=== PATIENT | male | born 1950 | race Caucasian/White ===

== ENCOUNTER 2019-03-09 06:33 | Day surgery (SDC) | payer MEDICARE, MEDICAID ==
[2019-03-09] MEDS ORDERED: Lidocaine 1%/Sod Bicarbonate in NS 8.4% 1 ML Syringe IDERM PRN (07:13)
[2019-03-09] MEDS ORDERED: Lactated Ringers 1,000 ML IV SCH (07:13)
[2019-03-09] MEDS ORDERED: Sodium Chloride 0.9% 10 ML Syringe FLUSH PRN (07:13)
[2019-03-09] MEDS ORDERED: Bupivacaine 0.25% 30 ML SDV ONE (07:39)
--- NOTE | 2019-03-09 08:01 | PCM.PREANE ---
Preanesthetic Assessment - Anesthesia/Transfusion/Family Hx Anesthesia History: Prior Anesthesia Without Reaction Family History of Anesthesia Reaction: No Transfusion History: Prior Transfusion Without Reaction - Review of Systems General: No Symptoms Pulmonary: No Symptoms Cardiovascular: No Symptoms Gastrointestinal: No Symptoms Neurological: No Symptoms Other: Reports: None - Physical Assessment NPO Status Date: 03/08/19 NPO Status Time: 18:00 Pulse: 64 O2 Sat by Pulse Oximetry: 96 Respiratory Rate: 16 Blood Pressure: 155/77 Temperature: 36.5 C Vital Signs: Last Vital Signs Temp 36.5 C 03/09/19 07:10 Pulse 64 03/09/19 07:10 Resp 16 03/09/19 07:10 BP 155/77 H 03/09/19 07:10 Pulse Ox 96 03/09/19 07:10 Height: 1.52 m Weight: 55.792 kg ASA Class: 2 Mental Status: Alert & Oriented x3 Airway Class: Mallampati = 1 Dentition: Reports: Caries Thyro-Mental Finger Breadths: 3 Mouth Opening Finger Breadths: 3 ROM/Head Extension: Full Lungs: Clear to Auscultation, Normal Respiratory Effort Cardiovascular: Regular Rate, Regular Rhythm - Lab Values: Laboratory Last Values MRSA (PCR) Negative 03/01/19 09:00 - Imaging/EKG Impressions: SR rate 64 - Allergies Allergies/Adverse Reactions: Allergies Allergy/AdvReac Type Severity Reaction Status Date / Time No Known Allergies Allergy Verified 03/08/19 15:03 - Anesthesia Plan Pre-Op Medication Ordered: None - Acknowledgements Anesthesia Type Planned: General Anesthesia Pt an Appropriate Candidate for the Planned Anesthesia: Yes Alternatives and Risks of Anesthesia Discussed w Pt/Guardian: Yes Pt/Guardian Understands and Agrees with Anesthesia Plan: Yes PreAnesthesia Questionnaire HEENT History: Reports: None Cardiovascular History: Reports: Hypertension Respiratory History: Reports: None Gastrointestinal History: Reports: None Genitourinary History: Reports: None Other Musculoskeletal History: Osteonecrosis right tibia, chronic right leg pain , post trauma left leg Neurological History: Reports: Headaches, Chronic Other Neuro History: Chronic headaches Psychiatric History: Reports: None Endocrine/Metabolic History: Reports: None Hematologic History: Reports: None Immunologic History: Reports: None Oncologic (Cancer) History: Reports: None Other Dermatologic History: Actinic keratosis - Infectious Disease History Infectious Disease History: Reports: Mumps - Past Surgical History Head Surgeries/Procedures: Reports: None HEENT Surgical History: Reports: None Cardiovascular Surgical History: Reports: None Respiratory Surgical History: Reports: None GI Surgical History: Reports: Colonoscopy Male Surgical History: Reports: None Endocrine Surgical History: Reports: None Neurological Surgical History: Reports: None Musculoskeletal Surgical History: Reports: None Dermatological Surgical History: Reports: None - SUBSTANCE USE Tobacco Use Within Last Twelve Months: Snuff/Dip Second Hand Smoke Exposure: No Days Per Week of Alcohol Use: 1 Number of Drinks Per Day: 1 Total Drinks Per Week: 1 Recreational Drug Use History: No - HOME MEDS Home Medications: Home Meds Chlorthalidone 12.5 mg PO DAILY 05/24/14 [History] Enalapril [Vasotec] 10 mg PO DAILY 05/24/14 [History] Aspirin 325 mg PO BID #84 tab 03/09/19 [Rx] Hydrocodone/Acetaminophen [Hydrocodon-Acetaminophen 5-325] 1 - 2 tab PO Q6H PRN #40 tablet 03/09/19 [Rx] - CURRENT (IN HOUSE) MEDS Current Meds: Current Medications Lactated Ringer's (Ringers, Lactated) 1,000 mls @ 125 mls/hr IV ASDIRECTED TAYLER Stop: 03/09/19 23:00 Last Admin: 03/09/19 07:15 Dose: 125 mls/hr Lidocaine/Sodium Bicarbonate (Buffered Lidocaine 1% In Ns 8.4%) 0.25 ml IDERM ONETIME PRN PRN Reason: Prior to IV Start Stop: 03/09/19 18:00 Last Admin: 03/09/19 07:15 Dose: 0.25 ml Sodium Chloride (Saline Flush) 10 ml FLUSH ASDIRECTED PRN PRN Reason: Keep Vein Open Stop: 03/09/19 18:00 Discontinued Medications Bupivacaine HCl (Marcaine 0.25%) Confirm Administered Dose 30 ml .ROUTE .STK- MED ONE Stop: 03/09/19 07:40
[2019-03-09] MEDS ORDERED: Rocuronium 50 MG/5 ML Vial ONE (08:10)
[2019-03-09] MEDS ORDERED: Ondansetron 4 MG/2 ML SDV ONE (08:10)
[2019-03-09] MEDS ORDERED: Lidocaine 1% 4 ML ONE (08:11)
[2019-03-09] MEDS ORDERED: Propofol 200 MG/20 ML SDV ONE (08:11)
[2019-03-09] MEDS ORDERED: fentaNYL 250 MCG/5 ML SDV ONE (08:11)
[2019-03-09] MEDS ORDERED: ceFAZolin 1 GM Vial ONE (08:11)
[2019-03-09] MEDS ORDERED: HYDROmorphone 0.5 MG/0.5 ML Syringe ONE ×2 (08:59→09:00)
[2019-03-09] MEDS ORDERED: Lactated Ringers 1,000 ML ONE (09:01)
[2019-03-09] MEDS ORDERED: fentaNYL 100 MCG/2 ML SDV ONE ×2 (09:36→10:01)
[2019-03-09] MEDS ORDERED: Ketorolac 30 MG/ML SDV ONE (10:02)
[2019-03-09] MEDS ORDERED: fentaNYL 100 MCG/2 ML SDV IVPUSH PRN (10:15)
[2019-03-09] MEDS ORDERED: HYDROmorphone 0.5 MG/0.5 ML Syringe IVPUSH PRN (10:15)
--- NOTE | 2019-03-09 10:17 | PCM.POSTAN ---
POST ANESTHESIA ASSESSMENT - MENTAL STATUS Mental Status: Alert, Oriented - VITAL SIGNS Pulse Rate: 83 SaO2: 95 Resp Rate: 14 Blood Pressure: 125/60 Temperature: 36.6 C - RESPIRATORY Respiratory Status: Respiratory Rate WNL, Airway Patent, O2 Saturation Stable, Supplemental Oxygen - CARDIOVASCULAR CV Status: Pulse Rate WNL, Blood Pressure Stable - GASTROINTESTINAL GI Status: No Symptoms - PAIN Pain Score: 2 - POST OP HYDRATION Hydration Status: Adequate & Stable - OBSERVATIONS Free Text/Narrative:: no anesthesia complications noted
--- NOTE | 2019-03-09 10:33 | CR ---
Right tibia: Eight fluoroscopic spot views were obtained of the right tibia and fibula utilizing C-arm device. Findings: Partially visualized knee prosthesis is seen. Lucent defects are seen from previous screw placements. Study shows placement of new plate and screws. Fluoroscopy time is given as 27.9 seconds. Impression: 1. Procedural study as noted above. Diagnostic code #2
[2019-03-09] MEDS ORDERED: Acetaminophen/HYDROcodone 325-5 MG Tab PO PRN (10:45)
[2019-03-09] MEDS ORDERED: fentaNYL 100 MCG/2 ML SDV IVPUSH ONE (11:59)
[2019-03-09] MEDS ORDERED: HYDROmorphone 0.5 MG/0.5 ML Syringe IVPUSH ONE (12:00)
[2019-03-09 13:17] VITALS: BP 111/61
--- NOTE | 2019-03-10 11:07 | PCM.OPNOTE ---
- General Post-Op/Procedure Note Date of Surgery/Procedure: 03/09/19 Operative Procedure(s): excision and curretage of osteonecrosis of right tibial shaft with operative plate fixation Pre Op Diagnosis: osteonecrosis of right midshaft tibia Post-Op Diagnosis: Same Anesthesia Technique: General LMA, Local Primary Surgeon: Apolinar Lancaster Anesthesia Provider: Jesus Lea Grading Clerk: Maki Murphy EBL in mLs: 110 Complications: None Condition: Good
--- NOTE | 2019-03-10 14:13 | OR ---
DATE OF OPERATION: 03/09/2019 SURGEON: Apolinar Lancaster MD OPERATION PERFORMED: Excision and curettage of osteonecrosis of right tibial shaft with operative plate fixation. PREOPERATIVE DIAGNOSIS: Osteonecrosis of right midshaft tibia. POSTOPERATIVE DIAGNOSIS: Osteonecrosis of right midshaft tibia. ANESTHESIA: General LMA with local. ANESTHESIA PROVIDER: Jesus Lea CRNA. SUPERVISOR ASSEMBLY DEPARTMENT: Maki Murphy PA-C. ESTIMATED BLOOD LOSS: 110 mL. COMPLICATIONS: None. CONDITION: Stable. DESCRIPTION OF PROCEDURE: The patient was identified in the preoperative holding area where proper site was marked and identified by the surgeon. The patient was taken back to the operating theater where after adequate anesthesia, the patient's right lower extremity was sterilely prepped and draped in the usual sterile fashion. OR time-out was performed. The patient received 2 g IV Ancef. At this time, right lower extremity was exsanguinated and a nonsterile tourniquet was insufflated to 250 mmHg. At this time, an incision was made just to the lateral side of the midshaft tibia over the crest of the tibia. At this time, we resected the muscle belly off the area of osteonecrosis which was identified on C-arm fluoroscopy on both AP and lateral views. Once we were able to get to that area, it showed that it had indentation in that region as well as signs of bone with color change. Using C-arm fluoroscopy for the exact spot, I was able to do drill holes around the area making sure to keep the anterior pretibial cortex intact. I used then osteotomes to resect that area of bone that was osteonecrotic. The bone was noted to be significantly weak around it and another piece of bone came off with the osteotome bone that was osteonecrotic. There were noted to be large lobules of what appeared to be osteonecrosed bone or fat behind it that we sent for pathology specimen. We did take 3 sets of anaerobic and aerobic cultures in the intramedullary canal making sure there were no signs of osteomyelitis. At this time, the entire inside was curetted to get a good bony bleeding bed. Adequate saline was then irrigated through the tibia. At this time, a 10-hole 4-hole Burkburnett locking compression plate was then placed and under C-arm fluoroscopy into the proper position. I was able to obtain 8 cortices both proximally and distally to the curetted bone region with both locking and nonlocking screws. This was found to have good adherence to the bone. It was found to be sufficiently distal to the very distal tip of the stem from the previous total knee arthroplasty, so it was in good positioning and I was able to get bicortical purchase for all 8 screws. At this time, I did place Burkburnett allograft in the bony defect. This was compacted and was able to fill the medullary canal as well as behind the plate, but it was sufficient packing so that there was no loose space noted behind the area. At this time, the soft tissues were irrigated making sure to keep the BIO4 intact behind the plate for the graft. A 0 Vicryl was then used for closure of the muscle fascia over the top of the plate, but it was loosely tightened. A 2-0 Vicryl was used subcutaneously. Saxton were used for the skin. The patient had a sterile soft dressing applied and was sent to PACU in stable condition. JASMIN /[id number]
== END 2019-03-09 13:14 | disposition home or self-care (01) ==
LOC: JD.SDS 06:33
PROVIDERS: ATTEND Orthopaedic Surgery
DX: M87.861 Other osteonecrosis, right tibia (principal); I10 Essential (primary) hypertension; M79.661 Pain in right lower leg; L57.0 Actinic keratosis; R51 Headache; G89.29 Other chronic pain; Z79.891 Long term (current) use of opiate analgesic; Z79.899 Other long term (current) drug therapy
CPT/HCPCS: 01392; 76000; 76000-26; 87075; 87205; 87641; 88304; 88311; A9270-GY; C1713; J0690; J1170; J1885; J2001; J2405; J2704; J3010; J3490; J7120

== ENCOUNTER 2021-01-02 06:18 | Day surgery (SDC) | payer MEDICARE, MEDICAID ==
[~2021-01-02 06:18] MED LIST: Lactated Ringers 1,000 ML IV SCH; Lidocaine 1%/Sod Bicarbonate in NS 8.4% 1 ML Syringe IDERM PRN; Sodium Chloride 0.9% 10 ML Syringe FLUSH PRN
[2021-01-02] MEDS ORDERED: Lidocaine 1% 30 ML SDV ONE (07:07)
[2021-01-02] MEDS ORDERED: Triamcinolone Acetonide 40 MG/ML 1 ML SDV ONE (07:07)
[2021-01-02] MEDS ORDERED: Propofol 200 MG/20 ML SDV ONE ×2 (07:11→07:40)
[2021-01-02] MEDS ORDERED: Midazolam 1 MG/ML 2 ML SDV ONE (07:12)
[2021-01-02] MEDS ORDERED: fentaNYL 100 MCG/2 ML SDV ONE (07:12)
[2021-01-02] MEDS ORDERED: ceFAZolin 1 GM Vial ONE (07:12)
[2021-01-02] MEDS: Bupivacaine 0.25% 10 ML SDV ONE ×2 (07:49→07:57)
--- NOTE | 2021-01-02 08:13 | PCM.PREANE ---
Preanesthetic Assessment - Procedure Proposed Procedure: carpal tunnel release - Anesthesia/Transfusion/Family Hx Anesthesia History: Prior Anesthesia Without Reaction Family History of Anesthesia Reaction: No Transfusion History: Prior Transfusion Without Reaction - Review of Systems General: No Symptoms Pulmonary: No Symptoms Cardiovascular: No Symptoms Gastrointestinal: No Symptoms Neurological: Numbness (hands) Other: Reports: None - Physical Assessment NPO Status Date: 01/01/21 NPO Status Time: 00:00 Vital Signs: Last Vital Signs Temp 36.7 C 01/02/21 06:15 Pulse 74 01/02/21 06:15 Resp 16 01/02/21 06:15 BP 131/66 01/02/21 06:15 Pulse Ox 95 01/02/21 06:15 Height: 1.52 m Weight: 58.513 kg ASA Class: 2 Mental Status: Alert & Oriented x3 Airway Class: Mallampati = 1 Dentition: Reports: Normal Dentition Thyro-Mental Finger Breadths: 3 Mouth Opening Finger Breadths: 3 ROM/Head Extension: Full Lungs: Clear to Auscultation, Normal Respiratory Effort Cardiovascular: Regular Rate, Regular Rhythm - Lab Values: Laboratory Last Values MRSA (PCR) Negative 12/27/20 08:57 - Allergies Allergies/Adverse Reactions: Allergies Allergy/AdvReac Type Severity Reaction Status Date / Time No Known Allergies Allergy Verified 03/09/19 11:02 - Anesthesia Plan Pre-Op Medication Ordered: None - Acknowledgements Anesthesia Type Planned: MAC Pt an Appropriate Candidate for the Planned Anesthesia: Yes Alternatives and Risks of Anesthesia Discussed w Pt/Guardian: Yes Pt/Guardian Understands and Agrees with Anesthesia Plan: Yes PreAnesthesia Questionnaire HEENT History: Reports: Impaired Vision, Other (See Below) Other HEENT History: wears glasses, has hearing aids bilaterally, nasal cautery Cardiovascular History: Reports: Hypertension Respiratory History: Reports: None Gastrointestinal History: Reports: None Genitourinary History: Reports: None WAREHOUSE ASSEMBLY WORKER History: Reports: None Other Musculoskeletal History: Osteonecrosis right tibia, chronic right leg pain, post trauma left leg Neurological History: Reports: Headaches, Chronic Other Neuro History: Chronic headaches Psychiatric History: Reports: None Endocrine/Metabolic History: Reports: None Hematologic History: Reports: None Immunologic History: Reports: None Oncologic (Cancer) History: Reports: None Other Dermatologic History: Actinic keratosis - Infectious Disease History Infectious Disease History: Reports: None - Past Surgical History Head Surgeries/Procedures: Reports: None HEENT Surgical History: Reports: None, Tonsillectomy Cardiovascular Surgical History: Reports: None Respiratory Surgical History: Reports: None GI Surgical History: Reports: Colonoscopy Female Surgical History: Reports: None Male Surgical History: Reports: None Endocrine Surgical History: Reports: None Neurological Surgical History: Reports: None Musculoskeletal Surgical History: Reports: None Other Musculoskeletal Surgeries/Procedures:: multiple left leg surgeries, ORIF right ankle Oncologic Surgical History: Reports: None Dermatological Surgical History: Reports: None - SUBSTANCE USE Tobacco Use Status *Q: Current Every Day Tobacco User Tobacco Use Within Last Twelve Months: Snuff/Dip Recreational Drug Use History: No - HOME MEDS Home Medications: Home Meds Chlorthalidone 12.5 mg PO DAILY 05/24/14 [History] Enalapril [Vasotec] 10 mg PO DAILY 05/24/14 [History] Hydrocodone/Acetaminophen [Hydrocodone-Acetamin 5-325 mg] 1 - 2 tab PO Q6H PRN #10 tablet 01/01/21 [Rx] - CURRENT (IN HOUSE) MEDS Current Meds: Current Medications Lactated Ringer's (Ringers, Lactated) 1,000 mls @ 125 mls/hr IV ASDIRECTED TALYER Stop: 01/02/21 23:00 Last Admin: 01/02/21 06:35 Dose: 125 mls/hr Documented by: Lidocaine/Sodium Bicarbonate (Buffered Lidocaine 1% In Ns 8.4%) 0.25 ml IDERM ONETIME PRN PRN Reason: Prior to IV Start Stop: 01/02/21 18:00 Last Admin: 01/02/21 06:34 Dose: 0.25 ml Documented by: Sodium Chloride (Saline Flush) 10 ml FLUSH ASDIRECTED PRN PRN Reason: Keep Vein Open Stop: 01/02/21 18:00 Discontinued Medications Bupivacaine HCl (Sensorcaine-Mpf 0.25%) Confirm Administered Dose 20 ml .ROUTE .STK-MED ONE Stop: 01/02/21 07:08 Cefazolin Sodium (Ancef) Confirm Administered Dose 2 gm .ROUTE .STK-MED ONE Stop: 01/02/21 07:13 Fentanyl (Sublimaze) Confirm Administered Dose 100 mcg .ROUTE .STK-MED ONE Stop: 03/04/21 07:13 Lidocaine HCl (Xylocaine-Mpf 1%) Confirm Administered Dose 30 ml .ROUTE .STK-MED ONE Stop: 01/02/21 07:08 Midazolam HCl (Versed 1 Mg/Ml) Confirm Administered Dose 2 mg .ROUTE .STK-MED ONE Stop: 01/02/21 07:13 Propofol (Diprivan 20 Ml) Confirm Administered Dose 200 mg .ROUTE .STK-MED ONE Stop: 01/02/21 07:12 Propofol (Diprivan 20 Ml) Confirm Administered Dose 200 mg .ROUTE .STK-MED ONE Stop: 01/02/21 07:41 Triamcinolone Acetonide (Kenalog-40) Confirm Administered Dose 40 mg .ROUTE .STK-MED ONE Stop: 01/02/21 07:08
--- NOTE | 2021-01-02 08:13 | PCM48HPAN ---
Post Anesthesia Note - EVALUATION WITHIN 48HRS OF ANESTHETIC Vital Signs in Normal Range: Yes Patient Participated in Evaluation: Yes Respiratory Function Stable: Yes Airway Patent: Yes Cardiovascular Function Stable: Yes Hydration Status Stable: Yes Pain Control Satisfactory: Yes Nausea and Vomiting Control Satisfactory: Yes Mental Status Recovered: Yes Vital Signs: Last Vital Signs Temp 36.7 C 01/02/21 06:15 Pulse 74 01/02/21 06:15 Resp 16 01/02/21 06:15 BP 131/66 01/02/21 06:15 Pulse Ox 95 01/02/21 06:15
--- NOTE | 2021-01-02 08:19 | PCM.OPNOTE ---
- General Post-Op/Procedure Note Date of Surgery/Procedure: 01/02/21 Operative Procedure(s): right carpal tunnel release with left carpal tunnel injection Pre Op Diagnosis: bilateral median nerve compression neuropathy Post-Op Diagnosis: Same Anesthesia Technique: Local, MAC Primary Surgeon: Apolinar Lancaster Anesthesia Provider: Jesus Lea Legal Services Manager: Maki Murphy EBL in mLs: 5 Complications: None Condition: Good
[2021-01-02 09:07] VITALS: BP 107/64; PULSE 61
--- NOTE | 2021-01-06 14:21 | OR ---
DATE OF OPERATION: 01/02/2021 SURGEON: Apolinar Lancaster MD OPERATION PERFORMED: Right carpal tunnel release with left carpal tunnel injection. PREOPERATIVE DIAGNOSIS: Bilateral median nerve compression neuropathy. POSTOPERATIVE DIAGNOSIS: Bilateral median nerve compression neuropathy. ANESTHESIA: Local MAC. ANESTHESIA PROVIDER: Jesus Lea CRNA CABLE INSTALLER: Maki Murphy PA-C ESTIMATED BLOOD LOSS: Less than 5 mL. COMPLICATIONS: None. CONDITION: Stable. DESCRIPTION OF PROCEDURE: The patient was identified in the preop holding area. Proper site was marked and identified by the surgeon. The patient was taken back to the operating theater where after adequate anesthesia, the patient's right upper extremity was sterilely prepped and draped in the usual sterile fashion. OR time-out was performed. The patient did not receive antibiotics and it is not indicated for soft tissue hand procedure. At this time, the right upper extremity was exsanguinated and an Esmarch was used as a tourniquet on the forearm. At this time, using 1% lidocaine without epinephrine and 0.25% Marcaine without epinephrine, the palmar cutaneous branch of the median nerve was anesthetized and then the incisional site was anesthetized using Dillon cardinal line and ulnar border of the fourth digit as reference. Once this had set up, an incision was made. Blunt dissection was taken down to the palmar cutaneous fascia. Palmar cutaneous fascia was incised with a [place] blade. At this time, the transverse carpal ligament was identified. A small rent was made in the transverse carpal ligament with a [place] blade under direct visualization. Resection of the transverse carpal ligament was done distally using tenotomy scissors making sure to stop short of the palmar arch. At this time, attention was turned proximally after it was found to be adequately released. Using the tenotomy scissors keeping the tips ulnar to protect the palmar cutaneous branch of the median nerve, the superficial forearm fascia as well as the transverse carpal ligament were resected proximally. It was found to be adequate release both proximally and distally. At this time, adequate saline was irrigated through the wound. 4-0 nylon sutures were used closure of the skin. The patient was placed in a sterile soft dressing and sent to PACU in stable condition. After this was completed, under sterile technique, 1 mL of 40 mg Kenalog and 2 mL of 0.25% Marcaine were injected to the left carpal tunnel. MMODAL /[id number]
== END 2021-01-02 09:10 | disposition home or self-care (01) ==
LOC: JD.SDS 06:18
PROVIDERS: ATTEND Orthopaedic Surgery
DX: G56.13 Other lesions of median nerve, bilateral upper limbs (principal); G56.03 Carpal tunnel syndrome, bilateral upper limbs; I10 Essential (primary) hypertension; G89.29 Other chronic pain; R51.9 Headache, unspecified; F17.290 Nicotine dependence, other tobacco product, uncomplicated; Z98.890 Other specified postprocedural states; Z79.899 Other long term (current) drug therapy
CPT/HCPCS: 20605; 64721; 87641; J0690; J2250; J2704; J3010; J3301; J3490; J7120; 01810

== ENCOUNTER 2021-10-16 07:45 | Emergency (ER) | payer MEDICARE, MEDICAID ==
[2021-10-16 08:09] VITALS: BP 111/64; PULSE 112
--- NOTE | 2021-10-16 09:17 | CR ---
Chest: Frontal view of the chest was obtained. Comparison: No prior chest imaging is available. Patchy peripheral areas of increased density are seen on both sides of the chest. Prior cervical spine surgery is noted. Heart size and mediastinum are within normal limits. Prior left shoulder surgery is seen. Impression: 1. Findings are felt compatible with mild COVID pneumonia. 2. Other findings which are believed to be chronic as noted above. Diagnostic code #3
--- NOTE | 2021-10-16 09:46 | EDM.PDOC ---
ED HPI GENERAL MEDICAL PROBLEM - General Chief Complaint: Respiratory Problem Stated Complaint: flu/covid Time Seen by Provider: 10/16/21 08:22 Source of Information: Reports: Patient History Limitations: Reports: No Limitations, Other (ED vital signs reveal a pulse of 112, respiratory rate of 22, blood pressure 111/64, pulse ox 87% on room air.) - History of Present Illness INITIAL COMMENTS - FREE TEXT/NARRATIVE: 71-year-old male presents to the emergency department today with complaints of flulike symptoms for approximately the past 2 weeks. He states that when he developed initial symptoms he thought that he was just getting the flu. He had fever, chills and body aches. He states it has progressed to feeling short of breath, having fatigue and a decreased appetite. He denies any nausea, vomiting or diarrhea. States he is otherwise fairly healthy. He states his primary care provider was Dr. Boone however he has since retired. He states he has not seen a provider since. He states he does take a pill for his heart daily however he is unsure of the name of this medication. He denies history of smoking. He did not have his Covid vaccines. - Related Data Allergies Allergy/AdvReac Type Severity Reaction Status Date / Time No Known Allergies Allergy Verified 10/16/21 08:09 Home Meds: Home Meds Chlorthalidone 12.5 mg PO DAILY 05/24/14 [History] Enalapril [Vasotec] 10 mg PO DAILY 05/24/14 [History] Ondansetron [Zofran ODT] 4 mg PO Q6H PRN #20 tab.dis 10/16/21 [Rx] dexAMETHasone [Dexamethasone] 6 mg PO DAILY #15 tablet 10/16/21 [Rx] Past Medical History HEENT History: Reports: Impaired Vision, Other (See Below) Other HEENT History: wears glasses, has hearing aids bilaterally, nasal cautery Cardiovascular History: Reports: Hypertension Respiratory History: Reports: None Gastrointestinal History: Reports: None Genitourinary History: Reports: None [employer] History: Reports: None Other Musculoskeletal History: Osteonecrosis right tibia, chronic right leg pain, post trauma left leg Neurological History: Reports: Headaches, Chronic Other Neuro History: Chronic headaches Psychiatric History: Reports: None Endocrine/Metabolic History: Reports: None Hematologic History: Reports: None Immunologic History: Reports: None Oncologic (Cancer) History: Reports: None Other Dermatologic History: Actinic keratosis - Infectious Disease History Infectious Disease History: Reports: None - Past Surgical History Head Surgeries/Procedures: Reports: None HEENT Surgical History: Reports: None, Tonsillectomy Cardiovascular Surgical History: Reports: None Respiratory Surgical History: Reports: None GI Surgical History: Reports: Colonoscopy Male Surgical History: Reports: None Endocrine Surgical History: Reports: None Neurological Surgical History: Reports: None Musculoskeletal Surgical History: Reports: None Other Musculoskeletal Surgeries/Procedures:: multiple left leg surgeries, ORIF right ankle Oncologic Surgical History: Reports: None Dermatological Surgical History: Reports: None Social & Family History - Tobacco Use Tobacco Use Status *Q: Never Tobacco User Second Hand Smoke Exposure: No - Caffeine Use Caffeine Use: Reports: None - Recreational Drug Use Recreational Drug Use: No ED ROS GENERAL - Review of Systems Review Of Systems: Comprehensive ROS is negative, except as noted in HPI. ED EXAM, GENERAL - Physical Exam Exam: See Below Exam Limited By: No Limitations General Appearance: Alert, WD/WN, No Apparent Distress Ears: Normal External Exam. No: Hearing Grossly Normal (Hearing aids noted bilaterally) Nose: Normal Inspection Throat/Mouth: Normal Inspection, Normal Lips, Normal Voice, No Airway Compromise Head: Atraumatic, Normocephalic Neck: Normal Inspection, Supple Respiratory/Chest: No Respiratory Distress, No Accessory Muscle Use, Chest Non- Tender, Crackles (Crackles noted to the bilateral bases) Cardiovascular: Normal Peripheral Pulses, Regular Rate, Rhythm, No Edema, No Murmur Peripheral Pulses: 2+: Radial (L), Radial (R) GI/Abdominal: Normal Bowel Sounds, Soft, Non-Tender, No Distention (Male) Exam: Deferred Rectal (Males) Exam: Deferred Back Exam: Normal Inspection Extremities: Normal Inspection Neurological: Alert, Oriented, Normal Cognition Psychiatric: Normal Affect, Normal Mood Skin Exam: Warm, Dry, Intact, Normal Color, No Rash Lymphatic: No Adenopathy #1 Interpretation EKG Date: 10/16/21 Time: 08:52 Rhythm: NSR Rate (Beats/Min): 79 [place]: Normal P-Wave: Present QRS: Normal ST-T: Normal QT: Normal Comparison: NA - No Prior EKG EKG Interpretation Comments: Per Dr. Pereira interpretation: Sinus rhythm at 79 bpm; low voltage, extremity leads, otherwise normal QRS Course - Vital Signs Text/Narrative:: Patient's O2 saturations at the time of my exam are 91 to 92%. He is otherwise hemodynamically stable. Lung sounds do reveal fine crackles noted to the bilateral lower lobes. Remainder exam is otherwise unremarkable. Suspect that this patient may have developed Covid as does fit clinically. Will obtain an EKG, portable chest x-ray, lab studies to include a CBC, CMP, magnesium, C- reactive protein, D-dimer and troponin levels. Last Recorded V/S: Last Vital Signs Temp 97.8 F 10/16/21 08:00 Pulse 112 H 10/16/21 08:00 Resp 22 H 10/16/21 08:00 BP 111/64 10/16/21 08:00 Pulse Ox 87 L 10/16/21 08:00 - Orders/Labs/Meds Orders: Active Orders 24 hr Category Date Time Status Saline Lock Insert [OM.PC] Stat Oth 10/16/21 08:34 Ordered Labs: Laboratory Tests 10/16/21 10/16/21 10/16/21 Range/Units 08:03 09:02 09:02 WBC 5.34 (4.23-9.07) K/mm3 RBC 4.19 L (4.63-6.08) M/mm3 Hgb 13.5 L D (13.7-17.5) gm/dl Hct 40.0 L (40.1-51.0) % MCV 95.5 H (79.0-92.2) fl MCH 32.2 (25.7-32.2) pg MCHC 33.8 (32.2-35.5) g/dl RDW Std Deviation 44.5 H (35.1-43.9) fL Plt Count 282 (163-337) K/mm3 MPV 9.7 (9.4-12.3) fl Neut % (Auto) 88.6 H (34.0-67.9) % Lymph % (Auto) 5.2 L (21.8-53.1) % [place] % (Auto) 5.4 (5.3-12.2) % Eos % (Auto) 0.4 L (0.8-7.0) Baso % (Auto) 0.2 (0.1-1.2) % Neut # (Auto) 4.73 (1.78-5.38) K/mm3 Lymph # (Auto) 0.28 L (1.32-3.57) K/mm3 [place] # (Auto) 0.29 L (0.30-0.82) K/mm3 Eos # (Auto) 0.02 L (0.04-0.54) K/mm3 Baso # (Auto) 0.01 (0.01-0.08) K/mm3 D-Dimer, Quantitative 1.09 H (0.19-0.50) mg/L Puncture Site ABG pH (7.35-7.45) ABG pCO2 (35.0-45.0) mmHg ABG pO2 (80.0-100.0) mmHg ABG HCO3 (22.0-26.0) meq/L ABG O2 Saturation (96.0-97.0) % ABG Base Excess (-2-2.0) A-a Gradient mmHg O2 Delivery Device Oxygen Flow Rate FiO2 (21.00-100.00) % Sodium (136-145) mEq/L Potassium (3.5-5.1) mEq/L Chloride (98-107) mEq/L Carbon Dioxide (21-32) mEq/L Anion Gap (5-15) BUN (7-18) mg/dL Creatinine (0.7-1.3) mg/dL Est Cr Clr Drug Dosing Estimated GFR (MDRD) (>60) mL/min BUN/Creatinine Ratio (14-18) Glucose (70-99) mg/dL Calcium (8.5-10.1) mg/dL Magnesium (1.8-2.4) mg/dL Total Bilirubin (0.2-1.0) mg/dL AST (15-37) U/L ALT (16-63) U/L Alkaline Phosphatase (46-116) U/L Troponin I (0.00-0.056) ng/mL C-Reactive Protein (<1.0) mg/dL Total Protein (6.4-8.2) g/dl Albumin (3.4-5.0) g/dl Globulin gm/dL Albumin/Globulin Ratio (1-2) SARS-CoV-2 RNA (GIANNI) Positive H (NEGATIVE) 10/16/21 10/16/21 Range/Units 09:02 11:19 WBC (4.23-9.07) K/mm3 RBC (4.63-6.08) M/mm3 Hgb (13.7-17.5) gm/dl Hct (40.1-51.0) % MCV (79.0-92.2) fl MCH (25.7-32.2) pg MCHC (32.2-35.5) g/dl RDW Std Deviation (35.1-43.9) fL Plt Count (163-337) K/mm3 MPV (9.4-12.3) fl Neut % (Auto) (34.0-67.9) % Lymph % (Auto) (21.8-53.1) % [place] % (Auto) (5.3-12.2) % Eos % (Auto) (0.8-7.0) Baso % (Auto) (0.1-1.2) % Neut # (Auto) (1.78-5.38) K/mm3 Lymph # (Auto) (1.32-3.57) K/mm3 [place] # (Auto) (0.30-0.82) K/mm3 Eos # (Auto) (0.04-0.54) K/mm3 Baso # (Auto) (0.01-0.08) K/mm3 D-Dimer, Quantitative (0.19-0.50) mg/L Puncture Site Lt radial ABG pH 7.53 H (7.35-7.45) ABG pCO2 35.3 (35.0-45.0) mmHg ABG pO2 66.0 L (80.0-100.0) mmHg ABG HCO3 29.2 H (22.0-26.0) meq/L ABG O2 Saturation 92.9 L (96.0-97.0) % ABG Base Excess 6.5 H (-2-2.0) A-a Gradient 40 mmHg O2 Delivery Device Room air Oxygen Flow Rate 0.0 FiO2 21.00 (21.00-100.00) % Sodium 134 L (136-145) mEq/L Potassium 3.6 (3.5-5.1) mEq/L Chloride 95 L (98-107) mEq/L Carbon Dioxide 30 (21-32) mEq/L Anion Gap 12.6 (5-15) BUN 46 H (7-18) mg/dL Creatinine 1.8 H (0.7-1.3) mg/dL Est Cr Clr Drug Dosing TNP Estimated GFR (MDRD) 38 (>60) mL/min BUN/Creatinine Ratio 25.6 H (14-18) Glucose 125 H (70-99) mg/dL Calcium 8.2 L (8.5-10.1) mg/dL Magnesium 2.9 H (1.8-2.4) mg/dL Total Bilirubin 0.6 (0.2-1.0) mg/dL AST 36 (15-37) U/L ALT 22 (16-63) U/L Alkaline Phosphatase 35 L (46-116) U/L Troponin I < 0.017 (0.00-0.056) ng/mL C-Reactive Protein 21.8 H* (<1.0) mg/dL Total Protein 6.8 (6.4-8.2) g/dl Albumin 2.7 L (3.4-5.0) g/dl Globulin 4.1 gm/dL Albumin/Globulin Ratio 0.7 L (1-2) SARS-CoV-2 RNA (GIANNI) (NEGATIVE) - Re-Assessments/Exams Free Text/Narrative Re-Assessment/Exam: 10/16/21 10:19 Radiologist impression frontal view of the chest: Patchy peripheral areas of increased density are seen on both sides of the chest. Prior cervical spine surgery is noted. Heart size and mediastinum are within normal limits. Prior left shoulder surgery is seen. Impression: 1. Findings are felt compatible with mild Covid pneumonia. 2. Other findings which are believed to be chronic as noted above. 10/16/21 11:02 Hemotology reveals a WBC of 5.34, hemoglobin 13.5, hematocrit 40.0, platelet count 282 D-dimer 1.09 Chemistry reveals a sodium of 134, potassium 3.6, carbon dioxide 30, anion gap 12.6, BUN 46, creatinine 1.8, GFR 38, glucose 125, calcium 8.2, magnesium 2.9, troponin less than 0.017, C-reactive protein 21.8 Patient is Covid positive I have ordered ABGs on this patient as his O2 saturations are 90% on room air 10/16/21 11:36 Arterial blood gases reveal a pH of 7.53, PCO2 35.3, PO2 66.0, bicarb 29.2, O2 saturation 92.9, base excess 6.5 on room air Patient will be discharged home with dexamethasone 6 mg daily for 10 days. Also sent a prescription for Zofran 4 mg ODT. Unfortunately, patient is outside the window to receive antibody treatment for Covid. Departure - Departure Time of Disposition: 11:41 Disposition: Home, Self-Care 01 Condition: Fair Clinical Impression: COVID-19 - Discharge Information Prescriptions: dexAMETHasone [Dexamethasone] 6 mg PO DAILY #15 tablet Ondansetron [Zofran ODT] 4 mg PO Q6H PRN #20 tab.dis PRN Reason: Nausea/Vomiting Instructions: COVID-19: What to Do If You Are Sick- [facility] (01/15/2021), 10 Things You Can Do to Manage Your COVID-19 Symptoms at Home - [facility] (05/16/2021) Referrals: PCP,None [Primary Care Provider] - Forms: ED Department Discharge Additional Instructions: You were seen in the emergency department today for complaints of not feeling well for 2 to 3 weeks. Your Covid did come back as positive. Lab studies were essentially unremarkable. Oxygen level while in the emergency department was right at 91 to 93%. Chest x-ray does show pneumonia related to Covid however this is viral in origin and cannot be treated with antibiotics. Unfortunately, it needs to run its course. I have sent prescription to your pharmacy for a steroid called dexamethasone. You will need to take 6 mg daily for the next 10 days. This will likely help to decrease inflammation caused by Covid. I have also sent a prescription to your pharmacy for a nausea medication called Zofran ODT. This medication is used to treat nausea. Recommend you take 1 tab and allow it to dissolve in your mouth under your tongue or inside your cheek. Wait approximately 30 minutes and then eat and drink. You can take this medication every 6 hours as needed. Recommend eating small frequent meals and protein drinks. Be sure you are drinking plenty of fluids and getting plenty rest. You will need to follow-up with your primary care provider in about 7 days time for reevaluation. We have given you a pulse oximeter to use at home. Recommend checking her oxygen level a few times daily. Be sure you have been sitting and resting for about half an hour prior to checking this as you may get a false low reading. If your readings are below 90% recommend follow-up with your primary care provider or here in the emergency department. Sepsis Event Note (ED) - Evaluation Sepsis Screening Result: Possible Sepsis Risk - Focused Exam Vital Signs: Vital Signs Temp Pulse Resp BP Pulse Ox 10/16/21 08:00 97.8 F 112 H 22 H 111/64 87 L - My Orders Last 24 Hours: My Active Orders 10/16/21 08:34 Saline Lock Insert [OM.PC] Stat - Assessment/Plan Last 24 Hours: My Active Orders 10/16/21 08:34 Saline Lock Insert [OM.PC] Stat
== END 2021-10-16 12:06 | disposition home or self-care (01) ==
LOC: JD.ED 07:45
DX: U07.1 COVID-19 (principal); I10 Essential (primary) hypertension
CPT/HCPCS: 36415; 36600; 71045; 80053; 82803; 83735; 84484; 85025; 85379; 86140; 93005; 99285; U0002

== ENCOUNTER 2022-02-18 06:18 | Day surgery (SDC) | payer MEDICARE, MEDICAID ==
[~2022-02-18 06:18] MED LIST changes: +Sodium Chloride 0.9% 10 ML Syringe FLUSH SCH
[2022-02-18] MEDS ORDERED: Bupivacaine 0.25% 10 ML SDV ONE ×2 (06:27→06:51)
[2022-02-18] MEDS ORDERED: Lidocaine 1% 30 ML SDV ONE (06:27)
[2022-02-18] MEDS ORDERED: fentaNYL 100 MCG/2 ML SDV ONE (06:36)
[2022-02-18] MEDS ORDERED: Lidocaine 1% 4 ML ONE (06:36)
[2022-02-18] MEDS ORDERED: Midazolam 1 MG/ML 2 ML SDV ONE (06:36)
[2022-02-18] MEDS ORDERED: Propofol 200 MG/20 ML SDV ONE (06:36)
[2022-02-18] MEDS ORDERED: ceFAZolin 1 GM Vial ONE (06:39)
[2022-02-18] MEDS ORDERED: Ketorolac 15 MG/ML SDV ONE (07:26)
[2022-02-18 08:15] VITALS: BP 119/69; PULSE 64
== END 2022-02-18 08:07 | disposition home or self-care (01) ==
LOC: JD.SDS 06:18
PROVIDERS: ATTEND Orthopaedic Surgery
DX: M65.321 Trigger finger, right index finger (principal); M65.331 Trigger finger, right middle finger; M65.341 Trigger finger, right ring finger; H91.90 Unspecified hearing loss, unspecified ear; I10 Essential (primary) hypertension; H54.7 Unspecified visual loss; F17.200 Nicotine dependence, unspecified, uncomplicated; Z79.899 Other long term (current) drug therapy
CPT/HCPCS: 26055; J0690; J1885; J2250; J2704; J3010; J3490; J7120; 01810; 99100

== ENCOUNTER 2023-12-02 11:39 | Emergency (ER) | payer MEDICARE, BC ==
[2023-12-02] MEDS ORDERED: Acetaminophen/HYDROcodone 325-5 MG Tab PO ONE (12:25)
[2023-12-02 14:53] VITALS: BP 122/73; PULSE 88
== END 2023-12-02 13:45 | disposition home or self-care (01) ==
LOC: JD.ED 11:39
DX: T23.122A Burn of first degree of single left finger (nail) except thumb, initial encounter (principal); T25.131A Burn of first degree of right toe(s) (nail), initial encounter; T31.0 Burns involving less than 10% of body surface; I10 Essential (primary) hypertension; Z79.899 Other long term (current) drug therapy; X08.8XXA Exposure to other specified smoke, fire and flames, initial encounter
CPT/HCPCS: 73120; 73620; 99283; A9270

== ENCOUNTER 2024-01-06 07:00 | Day surgery (SDC) | payer MEDICARE, BC ==
[~2024-01-06 07:00] MED LIST changes: +HYDROmorphone 0.5 MG/0.5 ML Syringe IVPUSH PRN; -Lactated Ringers 1,000 ML IV SCH; +Lidocaine 1% 2 ML ONE; -Lidocaine 1%/Sod Bicarbonate in NS 8.4% 1 ML Syringe IDERM PRN; +Midazolam 1 MG/ML 2 ML SDV ONE; +Ondansetron 4 MG/2 ML SDV IVPUSH PRN; +Propofol 200 MG/20 ML SDV ONE; -Sodium Chloride 0.9% 10 ML Syringe FLUSH SCH; +ceFAZolin 2 GM Vial ONE; +fentaNYL 100 MCG/2 ML SDV IVPUSH PRN; +fentaNYL 100 MCG/2 ML SDV ONE
[2024-01-06] MEDS ORDERED: Triamcinolone Acetonide 40 MG/ML 1 ML SDV ONE (07:04)
[2024-01-06] MEDS: Lactated Ringers 1,000 ML IV SCH (07:15)
[2024-01-06] MEDS: Bupivacaine 0.25% 10 ML SDV ONE (08:28)
[2024-01-06] MEDS: Lidocaine 1% 10 ML MDV ONE (08:28)
[2024-01-06] MEDS ORDERED: Sodium Chloride 0.9% 10 ML Syringe FLUSH SCH (09:00)
[2024-01-06 09:25] VITALS: BP 101/67; PULSE 68
[2024-01-06] MEDS ORDERED: Acetaminophen/HYDROcodone 325-5 MG Tab PO SCH (09:29)
== END 2024-01-06 10:00 | disposition home or self-care (01) ==
LOC: JD.SDS 07:00
PROVIDERS: ATTEND Orthopaedic Surgery
DX: G56.03 Carpal tunnel syndrome, bilateral upper limbs (principal); I10 Essential (primary) hypertension; M54.2 Cervicalgia; F17.200 Nicotine dependence, unspecified, uncomplicated; Z79.899 Other long term (current) drug therapy
CPT/HCPCS: 20526; 64721; J0690; J2250; J2704; J3010; J3301; J3490; J7120; 01810; 99100

== ENCOUNTER 2024-12-18 06:00 | Day surgery (SDC) | payer BC, MEDICARE ==
[2024-12-18] MEDS ORDERED: Lactated Ringers 1,000 ML IV ONE (06:01)
[2024-12-18] MEDS ORDERED: Ondansetron 4 MG/2 ML SDV ONE (06:18)
[2024-12-18] MEDS ORDERED: fentaNYL 100 MCG/2 ML SDV ONE (06:18)
[2024-12-18] MEDS ORDERED: Propofol 200 MG/20 ML SDV ONE (06:18)
[2024-12-18] MEDS ORDERED: dexmedeTOMIDine HCl 200 MCG/2 ML SDV ONE (06:25)
[2024-12-18] MEDS ORDERED: ceFAZolin 2 GM Vial ONE (07:02)
[2024-12-18] MEDS ORDERED: ePHEDrine 50 MG/ML SDV ONE (07:04)
[2024-12-18] MEDS: Lidocaine 1% 10 ML MDV ONE (07:19)
[2024-12-18] MEDS: Bupivacaine 0.25% 10 ML SDV ONE (07:19)
[2024-12-18 08:21] VITALS: BP 120/70; PULSE 77
== END 2024-12-18 08:25 | disposition home or self-care (01) ==
LOC: JD.SDS 06:00
PROVIDERS: ATTEND Orthopaedic Surgery
DX: M65.312 Trigger thumb, left thumb (principal); M65.342 Trigger finger, left ring finger; M65.352 Trigger finger, left little finger; I10 Essential (primary) hypertension; F17.290 Nicotine dependence, other tobacco product, uncomplicated; Z79.899 Other long term (current) drug therapy
CPT/HCPCS: 26055; J0665; J0690; J2405; J2704; J3010; J7120; 01810; J2003; J3490